=== PATIENT | male | born 1975 | race Caucasian/White ===

== ENCOUNTER → 2016-11-11 | Outpatient (CLI) | payer MEDICAID ==
[2016-11-11 08:39] LABS: Cholesterol 239 mg/dL (<200); HDL Cholesterol 56 mg/dL (40-60); Triglycerides 130 mg/dL (<150)
== END | disposition home or self-care (01) ==
LOC: LABWHC1 07:33
PROVIDERS: ATTEND Family Medicine
DX: Z00.00 Encounter for general adult medical examination without abnormal findings (principal); F52.21 Male erectile disorder
CPT/HCPCS: 36415; 80061

== ENCOUNTER → 2018-01-16 | Outpatient (CLI) | payer MEDICAID ==
[2018-01-16 08:58] LABS: Basophils % (A) 1 %; Eosinophils # (A) 0.2 k/uL (0-0.7); Eosinophils % (A) 2 %; HCT 46.1 % (39.0-53.0); HGB 14.7 gm/dL (13.0-17.5); Lymphocytes # (A) 1.5 k/uL (1.0-4.8); Lymphocytes % (A) 21 %; MCH 29.1 pg (25.0-35.0); Mean Platelet Volume 7.5; Monocytes # (A) 0.7 k/uL (0-1.0); Monocytes % (A) 9 %; Neutrophils # (A) 4.6 k/uL (1.3-7.7); Neutrophils % (A) 64 %; Platelet Count 274 k/uL (150-450); RBC 5.06 m/uL (4.30-5.90); RDW 13.8 % (11.5-15.5); WBC 7.2 k/uL (3.8-10.6)
[2018-01-16 08:59] LABS: ALT 37 U/L (21-72); AST 35 U/L (17-59); Albumin 4.3 g/dL (3.5-5.0); Alkaline Phosphatase 67 U/L (38-126); Anion Gap 9 mmol/L; Blood Urea Nitrogen 25 mg/dL (9-20); Calcium 9.7 mg/dL (8.4-10.2); Carbon Dioxide 29 mmol/L (22-30); Chloride 106 mmol/L (98-107); Cholesterol 181 mg/dL (<200); Glucose 94 mg/dL (74-99); HDL Cholesterol 57 mg/dL (40-60); LDL Cholesterol,Calculated 107 mg/dL (0-99); Potassium 5.7 mmol/L (3.5-5.1); Sodium 144 mmol/L (137-145); Total Bilirubin 0.4 mg/dL (0.2-1.3); Total Protein 7.2 g/dL (6.3-8.2); Triglycerides 86 mg/dL (<150)
== END | disposition home or self-care (01) ==
LOC: LABWHC1 07:53
PROVIDERS: ATTEND Family Medicine
DX: Z00.00 Encounter for general adult medical examination without abnormal findings (principal); F52.21 Male erectile disorder
CPT/HCPCS: 36415; 80053; 80061; 84443; 85025

== ENCOUNTER → 2020-03-20 | Outpatient (CLI) | payer MEDICAID ==
[2020-03-20 11:13] LABS: HCT 46.5 % (39.0-53.0); MCHC 32.3 g/dL (31.0-37.0); MCV 96.1 fL (80.0-100.0); Mean Platelet Volume 8.1; Platelet Count 251 k/uL (150-450); RBC 4.84 m/uL (4.30-5.90); RDW 13.3 % (11.5-15.5); WBC 6.1 k/uL (3.8-10.6)
[2020-03-20 15:31] LABS: African American GFR (CKD) 119.1 (60.0-200.0); Albumin 4.4 g/dL (3.80-4.90); Albumin/Globulin Ratio 1.91 (1.60-3.17); Anion Gap 8.9 mmol/L (4.00-12.00); BUN/Creat Ratio 24.44 Ratio (12.00-20.00); Calcium 9.7 mg/dL (8.7-10.3); Carbon Dioxide 28.1 mmol/L (21.6-31.8); Chol/HDL Ratio 3.28; Globulin 2.3 g/dL (1.6-3.3); LDL Cholesterol,Calculated 118.2 mg/dL (0.0-131.0); Non-African American GFR(CKD) 102.8 (60.0-200.0); Potassium 5.9 mmol/L (3.5-5.5); Total Bilirubin 0.7 mg/dL (0.3-1.2); Total Protein 6.7 g/dL (6.2-8.2); VLDL Calculation 11.8 mg/dL (5.00-40.00)
[2020-03-20 18:40] LABS: Hemoglobin A1C 5.3 % (4.0-6.0)
== END | disposition home or self-care (01) ==
LOC: LABWHC1 09:02
PROVIDERS: ATTEND Internal Medicine Clinical Cardiac Electrophysiology
DX: I10 Essential (primary) hypertension (principal); R00.1 Bradycardia, unspecified
CPT/HCPCS: 36415; 80053; 80061; 83036; 84443; 85027

== ENCOUNTER → 2020-04-01 | Outpatient (CLI) | payer MEDICAID ==
--- NOTE | 2020-04-01 10:57 | ECHOF ---
Referral Reason:Hypertention MEASUREMENTS -------- HEIGHT: 177.8 cm WEIGHT: 93.9 kg BP: 113/59 RVIDd: 3.7 cm (< 3.3) IVSd: 1.3 cm (0.6 - 1.1) LVIDd: 4.7 cm (3.9 - 5.3) LVPWd: 1.3 cm (0.6 - 1.1) IVSs: 1.7 cm LVIDs: 3.0 cm LVPWs: 1.9 cm LA Diam: 3.8 cm (2.7 - 3.8) LAESV Index (A-L): 29.95 ml/m Ao Diam: 3.7 cm (2.0 - 3.7) AV Cusp: 2.6 cm (1.5 - 2.6) MV EXCURSION: 18.162 mm (> 18.000) MV EF SLOPE: 45 mm/s (70 - 150) EPSS: 0.1 cm MV E Konstantin: 0.74 m/s MV DecT: 199 ms MV A Konstantin: 0.59 m/s MV E/A Ratio: 1.24 RAP: 5.00 mmHg RVSP: 28.73 mmHg FINDINGS -------- Sinus rhythm. This was a technically excellent study. The left ventricular size is normal. There is mild concentric left ventricular hypertrophy. Overa ll left ventricular systolic function is normal with, an EF between 60 - 65 %. The right ventricle is mildly enlarged. LA is midly dilated 29-33ml/m2. The right atrium is normal in size. Interatrial and interventricular septum intact. Aortic valve is trileaflet and is mildly thickened. There is trace mitral regurgitation. Mild tricuspid regurgitation present. Right ventricular systolic pressure is normal at < 35 mmHg. Trace/mild (physiologic) pulmonic regurgitation. The aortic root size is normal. Normal inferior vena cava with normal inspiratory collapse consistent with estimated right atrial pre ssure of 5 mmHg. There is no pericardial effusion. CONCLUSIONS -------- 1. Sinus rhythm. 2. This was a technically excellent study. 3. The left ventricular size is normal. 4. There is mild concentric left ventricular hypertrophy. 5. Overall left ventricular systolic function is normal with, an EF between 60 - 65 %. 6. The right ventricle is mildly enlarged. 7. LA is midly dilated 29-33ml/m2. 8. The right atrium is normal in size. 9. Interatrial and interventricular septum intact. 10. Aortic valve is trileaflet and is mildly thickened. 11. There is trace mitral regurgitation. 12. Mild tricuspid regurgitation present. 13. Right ventricular systolic pressure is normal at < 35 mmHg. 14. Trace/mild (physiologic) pulmonic regurgitation. 15. The aortic root size is normal. 16. Normal inferior vena cava with normal inspiratory collapse consistent with estimated right atrial pressure of 5 mmHg. 17. There is no pericardial effusion. ADMINISTRATIVE FELLOW: ANDREW Santiago
--- NOTE | 2020-04-01 13:28 | ECHOS ---
STRESS ECHOCARDIOGRAM LUMASON: Vial INDICATIONS: Chest discomfort. MEDICATIONS: Claritin BASELINE HEART RATE: 65 BASELINE BLOOD PRESSURE: 119/59 MAXIMUM HEART RATE: 174 MAXIMUM BLOOD PRESSURE: 210/67 85% MPHR: 149 100% MPHR: 175 METS: 12.7 MAXIMUM STAGE REACHED: 5 TOTAL EXERCISE TIME: 12:31 CLINICAL INFORMATION: History of hypertension and chest discomfort. Baseline heart rate 65 beats per minute. Baseline blood pressure 119/59 mmHg. Patient exercised on a Piyush protocol for 12-1/2 minutes. He denied any chest discomfort, very mildly short of breath at peak exercise. A 12-lead ECG shows sinus rhythm with very subtle early repolarization abnormality. The patient exercised on Piyush protocol for 12 minutes, 31 seconds achieving a peak heart rate of 174 beats per minute. Mildly hypertensive response to exercise 210/67 mmHg. There was no ECG evidence for ischemia. No arrhythmias were noted. The baseline 2D echo images showed normal LV size systolic function without any segmental wall motion abnormalities. At peak exercise, there was excellent augmentation of overall LV contractility without developing any wall motion abnormalities. At recovery, regional global LV systolic function remained normal. IMPRESSION: 1. Excellent exercise capacity. 2. Normal baseline ECG and blood pressure. No ECG or echocardiographic evidence for ischemia. Mildly hypertensive response with exercise. MMODL / IJN: [id number] /
== END | disposition home or self-care (01) ==
LOC: RADNMMAIN 09:01
PROVIDERS: ATTEND Internal Medicine Clinical Cardiac Electrophysiology
DX: I08.8 Other rheumatic multiple valve diseases (principal); R07.9 Chest pain, unspecified
CPT/HCPCS: 93306; 93351

== ENCOUNTER → 2020-04-03 | Outpatient (CLI) | payer MEDICAID ==
[2020-04-03 16:13] LABS: African American GFR (CKD) 119.1 (60.0-200.0); Anion Gap 7.6 mmol/L (4.00-12.00); BUN/Creat Ratio 31.11 Ratio (12.00-20.00); Calcium 9.4 mg/dL (8.7-10.3); Carbon Dioxide 25.4 mmol/L (21.6-31.8); Non-African American GFR(CKD) 102.8 (60.0-200.0); Potassium 4.7 mmol/L (3.5-5.5)
[2020-04-04 11:14] LABS: Creatinine 24 Hour,Urine 2.38 g/24Hr (1.00-2.00)
== END | disposition home or self-care (01) ==
LOC: LABWHC1 08:11
PROVIDERS: ATTEND Internal Medicine Clinical Cardiac Electrophysiology
DX: I15.9 Secondary hypertension, unspecified (principal)
CPT/HCPCS: 36415; 80048; 81050; 82088; 82340; 82533; 82570; 83835; 84244

== ENCOUNTER → 2020-11-25 | Outpatient (CLI) | payer MEDICAID ==
[2020-11-25 17:45] LABS: African American GFR (CKD) 104.1 (60.0-200.0); Calcium 9.8 mg/dL (8.7-10.3); Non-African American GFR(CKD) 89.9 (60.0-200.0); Potassium 5.3 mmol/L (3.5-5.5)
== END | disposition home or self-care (01) ==
LOC: LABWHC1 07:58
PROVIDERS: ATTEND Internal Medicine Clinical Cardiac Electrophysiology
DX: I10 Essential (primary) hypertension (principal); E87.5 Hyperkalemia
CPT/HCPCS: 36415; 80048

== ENCOUNTER → 2021-12-14 | Outpatient (CLI) | payer MEDICAID ==
[2021-12-14 11:00] LABS: Basophils # (A) 0.04 X 10*3/uL (0.00-0.10); Basophils % (A) 0.7 %; Eosinophils # (A) 0.12 X 10*3/uL (0.04-0.35); Eosinophils % (A) 2.1 %; HCT 43.7 % (39.6-50.0); HGB 14.1 g/dL (13.0-17.0); Immature Grans, Automated 0.2 %; Lymphocytes # (A) 1.68 X 10*3/uL (0.90-5.00); Lymphocytes % (A) 29.4 %; MCH 30.6 pg (27.0-32.0); MCHC 32.3 g/dL (32.0-37.0); MCV 94.8 fL (80.0-97.0); Mean Platelet Volume 10.7 fL (9.5-12.2); Monocytes # (A) 0.85 X 10*3/uL (0.20-1.00); Monocytes % (A) 14.9 %; NRBC Per 100 WBC 0 /100 WBCS (0.0-0.0); Neutrophils # (A) 3.02 X 10*3/uL (1.80-7.70); Neutrophils % (A) 52.7 %; Platelet Count 262 X 10*3/uL (140-440); RBC 4.61 X 10*6/uL (4.40-5.60); RDW 13.3 % (11.5-14.5); WBC 5.72 X 10*3/uL (4.50-10.00)
[2021-12-14 11:06] LABS: ALT 24 U/L (10-49); AST 20 U/L (14-35); African American GFR (CKD) 92.2 (60.0-200.0); Albumin 4.4 g/dL (3.8-4.9); Alkaline Phosphatase 52 U/L (41-126); BUN/Creat Ratio 18.55 Ratio (12.00-20.00); Blood Urea Nitrogen 20.4 mg/dL (9.0-27.0); Calcium 9.6 mg/dL (8.7-10.3); Carbon Dioxide 24.7 mmol/L (20.0-27.5); Chloride 105 mmol/L (96-109); Chol/HDL Ratio 2.23 Ratio; Globulin 2.5 g/dL (1.6-3.3); Glucose 94 mg/dL (70-110); LDL Cholesterol,Calculated 96.3 mg/dL (0.0-131.0); Non-African American GFR(CKD) 79.5 (60.0-200.0); Potassium 4.5 mmol/L (3.5-5.5); Sodium 140 mmol/L (135-145); Total Protein 6.9 g/dL (6.2-8.2); VLDL Calculation 11.18 mg/dL (5.00-40.00)
== END | disposition home or self-care (01) ==
LOC: LABWHC1 07:09
PROVIDERS: ATTEND Internal Medicine Clinical Cardiac Electrophysiology
DX: I10 Essential (primary) hypertension (principal); E78.5 Hyperlipidemia, unspecified
CPT/HCPCS: 36415; 80053; 80061; 85025

== ENCOUNTER → 2022-12-02 | Outpatient (CLI) | payer MEDICAID ==
[2022-12-02 11:22] LABS: HCT 47.6 % (39.6-50.0); HGB 15.3 g/dL (13.0-17.0); MCH 30.6 pg (27.0-32.0); MCHC 32.1 g/dL (32.0-37.0); MCV 95.2 fL (80.0-97.0); NRBC Per 100 WBC 0 /100 WBCS (0.0-0.0); Platelet Count 254 X 10*3/uL (140-440); RDW 13.2 % (11.5-14.5); WBC 5.71 X 10*3/uL (4.50-10.00)
[2022-12-02 11:48] LABS: ALT 30 U/L (10-49); AST 17 U/L (14-35); African American GFR (CKD) 102.7 (60.0-200.0); Albumin 4.7 g/dL (3.8-4.9); Albumin/Globulin Ratio 1.88 (1.60-3.17); Alkaline Phosphatase 63 U/L (41-126); Blood Urea Nitrogen 22.8 mg/dL (9.0-27.0); Carbon Dioxide 28.1 mmol/L (20.0-27.5); Chloride 103 mmol/L (96-109); Chol/HDL Ratio 3.18 Ratio; Globulin 2.5 g/dL (1.6-3.3); Glucose 93 mg/dL (70-110); LDL Cholesterol,Calculated 148.3 mg/dL (0.0-131.0); Magnesium 2.1 mg/dL (1.5-2.4); Non-African American GFR(CKD) 88.6 (60.0-200.0); Potassium 5.2 mmol/L (3.5-5.5); Sodium 141 mmol/L (135-145); Total Protein 7.2 g/dL (6.2-8.2); VLDL Calculation 18.24 mg/dL (5.00-40.00)
== END | disposition home or self-care (01) ==
LOC: LABWHC1 07:13
PROVIDERS: ATTEND Internal Medicine Interventional Cardiology
DX: I10 Essential (primary) hypertension (principal); E78.5 Hyperlipidemia, unspecified
CPT/HCPCS: 36415; 80053; 80061; 83735; 84443; 85027

== ENCOUNTER → 2025-02-17 | Outpatient (CLI) | payer MEDICAID ==
--- NOTE | 2025-02-17 10:04 | US ---
EXAMINATION TYPE: US carotid duplex BILAT DATE OF EXAM: 02/17/2025 COMPARISON: NONE CLINICAL INDICATION: Male, 49 years old with history of I65.23 CAROTID STENOSIS; Dizziness Additional History: R42* Dizziness TECHNIQUE: Grayscale, color Doppler and spectral Doppler evaluation of the bilateral carotid systems and vertebral arteries. Indirect Doppler criteria was utilized. FINDINGS: EXAM MEASUREMENTS: RIGHT: Peak Systolic Velocity (PSV) cm/sec ----- Right CCA: 157.4 ----- Right ICA: 132.5 ----- Right ECA: 104.8 ICA/CCA ratio: 0.8 RIGHT: End Diastole cm/sec ----- Right CCA: 37.2 ----- Right ICA: 37.8 ----- Right ECA: 16.2 LEFT: Peak Systolic Velocity (PSV) cm/sec ----- Left CCA: 151.5 ----- Left ICA: 112.1 ----- Left ECA: 106.2 ICA/CCA ratio: 0.7 LEFT: End Diastole cm/sec ----- Left CCA: 37.2 ----- Left ICA: 25.4 ----- Left ECA: 17.5 VERTEBRALS (direction of flow): Right Vertebral: Antegrade Left Vertebral: Antegrade Rhythm: Normal ARMATURE BANDER NOTES: No significant stenosis seen Color Doppler imaging shows patency with blood flow throughout the carotid artery. Spectral waveforms are within normal limits. IMPRESSION: Right: Less than 50% stenosis of the carotid bifurcation. Left: Less than 50% stenosis of the carotid bifurcation. Criteria for Assigning % of Stenosis / Diameter reduction (Estimation based on the indirect measurements of the internal carotid artery velocities (ICA PSV). 1. Normal (no stenosis)=ICA PSV < 180 cm/s: ratio < 2.0: ICA EDV<40 cm/s. 2. Less than 50% stenosis=ICA PSV < 180 cm/s: ratio < 2.0: ICA EDV<40 cm/s. 3. 50 to 69% stenosis=ICA PSV of 180 to 230 cm/s: ration 2.0 ? 4.0: ICA EDV 40-100 cm/s. PSV 125-180 cm/sec and ICA/CCA PSV Ratio ? 2.0 is also consistent with 50-69% stenosis 4. Greater than 70% stenosis to near occlusion= ICA PSV > 230 cm/s: ratio > 4.0: ICA EDV > 100 cm/s. 5. Near occlusion= ICA PSV velocities may be low or undetectable: variable ratio and ICA EDV. 6. Total occlusion=unable to detect flow. [facility], , 02/17/2025 10:01 AM
== END | disposition home or self-care (01) ==
LOC: RADUSWWP 07:27
PROVIDERS: ATTEND Internal Medicine
DX: I65.23 Occlusion and stenosis of bilateral carotid arteries (principal)
CPT/HCPCS: 93880